=== PATIENT | male | born 1995 | race Caucasian/White ===

== ENCOUNTER 2021-04-10 19:48 | Emergency (ER) | payer OTHER ==
[2021-04-10 20:05] VITALS: TEMP 97.8; BMI 35.5
[2021-04-10 21:58] LABS: BASO % 0.6 % (0-2.0); EOS % 1.2 % (0-4.5); HEMATOCRIT 42.9 % (35.4-49); HEMOGLOBIN 14.6 GM/dL (11.7-16.9); LYMPH % 11.3 % (8-40); MCH 29.6 pg (25.7-33.7); MCHC 34.1 g/dl (32.0-35.9); MEAN CELL VOLUME 86.9 fl (80-96); MEAN PLT VOLUME 9.7 fl (7.5-11.1); MONO % 6.4 % (3.8-10.2); NEUT % 80.5 % (42.8-82.8); PLATELET COUNT 213 K/MM3 (134-434); RBC 4.93 M/mm3 (4.00-5.60); RDW 13.2 % (11.9-15.9); WHITE BLOOD COUNT 13.4 K/mm3 (4.0-10.0)
[2021-04-10 22:09] LABS: EPI CELLS 5 /uL (0-25.1); HYALINE CASTS 1 /uL (0-3.1); PH,URINE 6.5 (5.0-8.0); URINE APPEARANCE CLEAR; URINE BACTERIA 34 /uL (0-1359); URINE BILIRUBIN NEGATIVE (NEGATIVE); URINE COLOR YELLOW; URINE GLUCOSE (UA) NEGATIVE (NEGATIVE); URINE KETONE TRACE (NEGATIVE); URINE LEUK ESTERASE NEGATIVE (NEGATIVE); URINE NITRITE NEGATIVE (NEGATIVE); URINE PROTEIN 1+ (NEGATIVE); URINE RBC 3321 /uL (0-23.9); URINE WBC 9 /uL (0-25.8)
[2021-04-10 22:15] LABS: CALCIUM 9.2 mg/dL (8.5-10.1)
[2021-04-10 22:16] LABS: BLOOD UREA NITROGEN 8.6 mg/dL (7-18)
[2021-04-10 22:19] LABS: CREATININE 1.1 mg/dL (0.55-1.3)
[2021-04-10 22:20] LABS: BILIRUBIN,TOTAL 0.4 mg/dL (0.2-1)
[2021-04-10 22:21] LABS: TOT PROT 7.8 g/dl (6.4-8.2)
[2021-04-11 00:18] VITALS: BP 121/74; PULSE 77
== END 2021-04-11 00:20 | disposition home or self-care (01) ==
LOC: JER 19:48
DX: R31.9 Hematuria, unspecified (principal); N50.811 Right testicular pain
CPT/HCPCS: 36415; 76870-TC; 80053; 81003; 85025; 87086; 99284-25